=== PATIENT | male | born 1955 | race Caucasian/White ===

== ENCOUNTER 2021-07-16 16:36 | Inpatient (IN) | payer BC, MEDICARE ==
[~2021-07-16 16:36] MED LIST: Iopamidol 370 76% 100 ML VIAL ONE
[2021-07-16] MEDS ORDERED: Boostrix 0.5 ML (Tdap) VIAL ONE (16:45)
[2021-07-16] MEDS ORDERED: CEFAZOLIN 1 GM VIAL ONE (16:45)
[2021-07-16] MEDS ORDERED: Fentanyl 100 MCG/2 ML VIAL ONE (16:47)
[2021-07-16 17:02] LABS: #Basophils 0.1 thou/uL (0.0-0.2); #Eosinphils 0.2 thou/uL (0.0-0.7); #Lymphocytes 3.1 thou/uL (1.20-3.40); #Monocytes 0.7 thou/uL (0.11-0.59); %Basophils 1.8 % (0.0-1.0); %Eosinophils 2.3 % (0.0-10.0); %Lymphocytes 38.2 % (21.0-51.0); %Monocytes 8.1 % (0.0-10.0); %Neutrophils 49.6 % (42.0-75.0); Hemoglobin 13.1 g/dL (14.0-18.0); Mean Corpuscular HGB CONC 33.6 g/dL (32.0-36.0); Mean Corpuscular Hemoglobin 35.8 pg (27.0-31.0); Mean Platelet Volume 5.9 fL (7.4-10.4); Platelet Count 248 thou/uL (130-400); RBC Distribution Width 11.3 % (11.5-14.5); Red Blood Cell (RBC) Count 3.66 mill/uL (4.70-6.10); White Blood Cell (WBC) Count 8.2 thou/uL (4.8-10.8)
[2021-07-16 17:19] LABS: MDiff Complete? YES; Macrocytosis SLIGHT = 6-15 cells (100X) (0-5/hpf); PTT 23.5 sec (22.9-36.1); Platelet Morphology Comment Appears Adequate; Prothrombin Time 13.7 sec (12.0-14.7)
[2021-07-16 17:27] LABS: ALT (SGPT) 16 U/L (8-55); AST (SGOT) 20 U/L (5-34); Acetaminophen Less than 6.0 mcg/mL (10.0-30.0); Albumin 3.9 g/dL (3.4-4.8); Alcohol 63 mg/dL (Less than 10); Alkaline Phosphatase 55 U/L (40-110); Anion Gap 15 mmol/L (10-20); BUN (Urea Nitrogen) 17 mg/dL (8.4-25.7); Bilirubin, Total 0.3 mg/dL (0.2-1.2); Calc. Creatinine Clearance 0 mL/min (70-130); Calcium 8.5 mg/dL (7.8-10.44); Carbon Dioxide 22 mmol/L (23-31); Chloride 100 mmol/L (98-107); Globulin 2.7 g/dL (2.4-3.5); Glucose 81 mg/dL (80-115); Potassium 3.8 mmol/L (3.5-5.1); Protein, Total 6.6 g/dL (5.8-8.1); Salicylate Less than 8.0 mg/dL (15.0-30.0); Sodium 133 mmol/L (136-145)
[2021-07-16] MEDS ORDERED: Xylocaine 1% w/ Epi 1:100K 10 ML VIAL ONE ×2 (17:27→19:58)
[2021-07-16] MEDS ORDERED: Ketorolac Tromethamine 30 MG/ML VIAL ONE ×2 (17:55→22:10)
[2021-07-16] MEDS ORDERED: Dextrose 5% in Water 1,000 ML IV PRN (18:24)
[2021-07-16] MEDS ORDERED: Dextrose 50% Abboject 50 ML SYRINGE SLOW IVP PRN (18:24)
[2021-07-16] MEDS ORDERED: hydrALAZINE 20 MG/ML VIAL SLOW IVP PRN (18:24)
[2021-07-16] MEDS ORDERED: Rib Fracture Protocol PO SCH (18:30)
[2021-07-16] MEDS ORDERED: Morphine 4 MG/ML VIAL SLOW IVP PRN (18:31)
[2021-07-16 18:43] LABS: Magnesium 2.3 mg/dL (1.6-2.6); Phosphorus 3.5 mg/dL (2.3-4.7)
[2021-07-16] MEDS: Morphine 4 MG/ML VIAL SLOW IVP PRN (19:37)
[2021-07-16 19:46] LABS: SARS-CoV-2 NAA Rapid Test Not Detected (NotDetected)
[2021-07-16] MEDS ORDERED: Bacitracin Zinc Ointment 30 gm TUBE ONE (19:58)
[2021-07-16] MEDS ORDERED: Fentanyl 100 MCG/2 ML VIAL SLOW IVP SCH (20:00)
[2021-07-16] MEDS: Sodium Chloride 0.9% 1,000 ML IV SCH (20:03)
[2021-07-16 20:07] VITALS: BMI 25.1
[2021-07-16] MEDS ORDERED: Promethazine HCl 25 MG/ML VIAL IM PRN (20:58)
[2021-07-16] MEDS ORDERED: Ondansetron HCl/PF 4 MG/2 ML Vial IVP PRN (20:58)
[2021-07-16] MEDS ORDERED: Promethazine HCl 25 MG/ML VIAL IVPB PRN (20:58)
[2021-07-16] MEDS ORDERED: Gabapentin 100 MG CAP PO SCH (21:00)
[2021-07-16] MEDS ORDERED: Famotidine/PF 20 mg/2ml Vial SLOW IVP SCH (21:00)
[2021-07-16] MEDS ORDERED: Fentanyl 250 MCG/5 ML VIAL ONE (22:06)
[2021-07-16] MEDS ORDERED: ePHEDrine 50 MG/ML VIAL ONE (22:10)
[2021-07-16] MEDS ORDERED: Lidocaine 1% PF 5 ML VIAL ONE (22:10)
[2021-07-16] MEDS ORDERED: Vecuronium 10 MG VIAL ONE (22:10)
[2021-07-16] MEDS ORDERED: PHENYLEPHRINE-NS 100 MCG/ML 10 ML SYRINGE ONE (22:10)
[2021-07-16] MEDS ORDERED: PROPOFOL 200 MG/20 ML VIAL ONE (22:10)
[2021-07-16] MEDS ORDERED: Ondansetron PF 4 MG/2 ML Vial ONE (22:10)
[2021-07-16] MEDS ORDERED: Glycopyrrolate 0.2 MG/ML 5 ML SYRINGE ONE (22:10)
[2021-07-16] MEDS ORDERED: Succinylcholine 200 MG/10 ml SYRINGE FS ONE (22:10)
[2021-07-17] MEDS: Senokot S 8.6-50 MG TAB PO SCH ×3 (00:02→20:13)
[2021-07-17] MEDS: Oxazepam 10 MG CAP PO SCH ×4 (00:02→20:11)
[2021-07-17] MEDS: Ibuprofen 200 MG TAB PO SCH ×2 (00:02→05:26)
[2021-07-17] MEDS: Acetaminophen 500 MG TAB PO SCH ×2 (01:06→05:24)
[2021-07-17] MEDS: Cyclobenzaprine 10 MG TAB PO PRN ×3 (01:06→23:47)
[2021-07-17] MEDS: traMADol HCl 50 MG TAB PO SCH ×2 (01:07→05:25)
[2021-07-17] MEDS: Sodium Chloride 0.9% 1,000 ML IV SCH (04:57)
[2021-07-17 05:44] LABS: #Eosinphils 0.1 thou/uL (0.0-0.7); #Lymphocytes 1.2 thou/uL (1.20-3.40); #Monocytes 0.6 thou/uL (0.11-0.59); #Neutrophils 5.7 thou/uL (1.40-6.50); %Basophils 0.3 % (0.0-1.0); %Eosinophils 0.8 % (0.0-10.0); %Lymphocytes 16.3 % (21.0-51.0); %Monocytes 7.9 % (0.0-10.0); %Neutrophils 74.9 % (42.0-75.0); Hemoglobin 9.7 g/dL (14.0-18.0); Mean Corpuscular HGB CONC 33.4 g/dL (32.0-36.0); Mean Corpuscular Hemoglobin 36.1 pg (27.0-31.0); Mean Platelet Volume 5.8 fL (7.4-10.4); Platelet Count 178 thou/uL (130-400); RBC Distribution Width 11.3 % (11.5-14.5); Red Blood Cell (RBC) Count 2.68 mill/uL (4.70-6.10); White Blood Cell (WBC) Count 7.6 thou/uL (4.8-10.8)
[2021-07-17 05:53] LABS: Anion Gap 10 mmol/L (10-20); BUN (Urea Nitrogen) 18 mg/dL (8.4-25.7); Calc. Creatinine Clearance 95 mL/min (70-130); Calcium 7.5 mg/dL (7.8-10.44); Carbon Dioxide 21 mmol/L (23-31); Chloride 106 mmol/L (98-107); Glucose 115 mg/dL (80-115); Phosphorus 3.9 mg/dL (2.3-4.7); Potassium 4.5 mmol/L (3.5-5.1); Sodium 132 mmol/L (136-145)
[2021-07-17] MEDS: Morphine 4 MG/ML VIAL SLOW IVP PRN (05:59)
[2021-07-17] MEDS ORDERED: Acetaminophen/Codeine 30-300mg Tablet PO PRN (08:42)
[2021-07-17] MEDS ORDERED: Polyethylene Glycol 3350 17 GM Packet PO SCH (09:00)
[2021-07-17] MEDS: Folic Acid 1 MG TAB PO SCH (09:15)
[2021-07-17] MEDS: Enoxaparin Sodium 40 MG/0.4 ML SYRINGE SC SCH (09:15)
[2021-07-17] MEDS: Gabapentin 300 MG CAP PO SCH ×3 (09:16→20:10)
[2021-07-17] MEDS ORDERED: Cyclobenzaprine 10 MG TAB PO PRN ×2 (09:54→10:00)
[2021-07-17] MEDS ORDERED: Morphine 4 MG/ML VIAL SLOW IVP PRN (09:58)
[2021-07-17] MEDS ORDERED: Ketorolac Tromethamine 30 MG/ML VIAL IVP PRN (10:01)
[2021-07-17] MEDS ORDERED: Cyclobenzaprine 10 MG TAB PO SCH (11:30)
[2021-07-17] MEDS ORDERED: traMADol HCl 50 MG TAB PO SCH (12:00)
[2021-07-17] MEDS ORDERED: Acetaminophen/Codeine 30-300mg Tablet PO SCH (12:00)
[2021-07-17] MEDS: Thiamine 100 MG TAB PO SCH (12:13)
[2021-07-17] MEDS: Multivitamin W/ Minerals 1 TAB PO SCH (12:13)
[2021-07-17] MEDS: CEFAZOLIN 2 GM in Sodium Chloride 0.9% 100 ML IVPB SCH ×2 (12:25→20:09)
[2021-07-17] MEDS: Ketorolac Tromethamine 30 MG/ML VIAL IVP SCH ×2 (18:49→23:43)
[2021-07-17] MEDS: Acetaminophen/Codeine 30-300mg Tablet PO SCH ×2 (18:50→23:44)
[2021-07-17] MEDS: Melatonin 3 MG TAB PO SCH (20:10)
[2021-07-17] MEDS: Bacitracin Zinc Ointment 30 gm TUBE TOP SCH (20:11)
[2021-07-17] MEDS: Tamsulosin HCl 0.4 MG CAP PO SCH (20:11)
[2021-07-18] MEDS: Acetaminophen/Codeine 30-300mg Tablet PO SCH ×3 (05:01→18:32)
[2021-07-18] MEDS: Ketorolac Tromethamine 30 MG/ML VIAL IVP SCH ×3 (05:01→14:48)
[2021-07-18] MEDS: Oxazepam 10 MG CAP PO SCH ×3 (05:02→23:27)
[2021-07-18] MEDS: ceFAZolin Sodium/D5W 2 GM in Premix Bag 1 BAG IVPB SCH ×2 (05:45→12:28)
[2021-07-18] MEDS: CEFAZOLIN 2 GM in Sodium Chloride 0.9% 100 ML IVPB SCH (05:46)
[2021-07-18 06:00] LABS: #Eosinphils 0.2 thou/uL (0.0-0.7); #Lymphocytes 1.4 thou/uL (1.20-3.40); #Monocytes 0.5 thou/uL (0.11-0.59); #Neutrophils 4.6 thou/uL (1.40-6.50); %Basophils 0.4 % (0.0-1.0); %Eosinophils 2.7 % (0.0-10.0); %Lymphocytes 20.7 % (21.0-51.0); %Monocytes 7.9 % (0.0-10.0); %Neutrophils 68.2 % (42.0-75.0); Hemoglobin 9.8 g/dL (14.0-18.0); Mean Corpuscular HGB CONC 32.5 g/dL (32.0-36.0); Mean Corpuscular Hemoglobin 35.7 pg (27.0-31.0); Mean Platelet Volume 6.1 fL (7.4-10.4); Platelet Count 154 thou/uL (130-400); RBC Distribution Width 11.4 % (11.5-14.5); Red Blood Cell (RBC) Count 2.75 mill/uL (4.70-6.10); White Blood Cell (WBC) Count 6.8 thou/uL (4.8-10.8)
[2021-07-18 06:16] LABS: Anion Gap 12 mmol/L (10-20); BUN (Urea Nitrogen) 13 mg/dL (8.4-25.7); Calc. Creatinine Clearance 109 mL/min (70-130); Carbon Dioxide 21 mmol/L (23-31); Chloride 104 mmol/L (98-107); Glucose 92 mg/dL (80-115); Magnesium 2.1 mg/dL (1.6-2.6); Phosphorus 3.4 mg/dL (2.3-4.7); Potassium 4.1 mmol/L (3.5-5.1); Sodium 133 mmol/L (136-145)
[2021-07-18] MEDS: Polyethylene Glycol 3350 17 GM Packet PO SCH (10:09)
[2021-07-18] MEDS: Enoxaparin Sodium 40 MG/0.4 ML SYRINGE SC SCH (10:09)
[2021-07-18] MEDS: Thiamine 100 MG TAB PO SCH (10:10)
[2021-07-18] MEDS: Gabapentin 300 MG CAP PO SCH ×3 (10:10→23:27)
[2021-07-18] MEDS: Cyclobenzaprine 10 MG TAB PO PRN (10:10)
[2021-07-18] MEDS: Multivitamin W/ Minerals 1 TAB PO SCH (10:10)
[2021-07-18] MEDS: Senokot S 8.6-50 MG TAB PO SCH ×2 (10:10→23:14)
[2021-07-18] MEDS: Folic Acid 1 MG TAB PO SCH (10:10)
[2021-07-18] MEDS: Bacitracin Zinc Ointment 30 gm TUBE TOP SCH ×2 (10:12→23:13)
[2021-07-18] MEDS: traMADol HCl 50 MG TAB PO SCH ×2 (12:28→18:32)
[2021-07-18] MEDS: Calcium Carbonate 500 MG ChewTAB PO PRN (18:08)
[2021-07-18] MEDS ORDERED: Promethazine HCl 12.5 MG in Sodium Chloride 0.9% 50 ML IVPB PRN (18:18)
[2021-07-18] MEDS ORDERED: Ondansetron HCl/PF 8 MG in Sodium Chloride 0.9% 50 ML IVPB PRN (18:18)
[2021-07-18] MEDS ORDERED: Simethicone Chewable 80 MG TAB PO PRN (18:19)
[2021-07-18] MEDS ORDERED: Ondansetron PF 4 MG/2 ML Vial IVP PRN ×2 (18:21→20:12)
[2021-07-18] MEDS ORDERED: Lidocaine 2% Jelly 5 ML TUBE TOP SCH (20:07)
[2021-07-18] MEDS ORDERED: Naloxone HCl 0.4 mg/ml Vial IV PRN (20:12)
[2021-07-18] MEDS ORDERED: diphenhydrAMINE 50 MG/ML VIAL IVP PRN (20:12)
[2021-07-18] MEDS ORDERED: diphenhydrAMINE 25 MG CAP PO PRN (20:12)
[2021-07-18] MEDS ORDERED: Zolpidem Tartrate 5 MG TAB PO PRN (20:12)
[2021-07-18] MEDS ORDERED: diphenhydrAMINE 50 MG/ML VIAL IM PRN (20:12)
[2021-07-18] MEDS ORDERED: HYDROmorphone 10 mg/100 ml CADD IVPB PRN (20:12)
[2021-07-18] MEDS ORDERED: Promethazine HCl 25 MG/ML VIAL IM PRN (20:12)
[2021-07-18] MEDS: Scopolamine 1.5 mg/72 hour Patch TD SCH (20:13)
[2021-07-18] MEDS ORDERED: Benzocaine 20% Spray 60 ML CAN PO SCH (20:15)
[2021-07-18] MEDS ORDERED: Communication Order-Pharmacy FS SCH (20:15)
[2021-07-18] MEDS ORDERED: Morphine 4 MG/ML VIAL SLOW IVP SCH (20:35)
[2021-07-18] MEDS ORDERED: Ibuprofen 200 MG TAB PO SCH (21:00)
[2021-07-18] MEDS: CEFAZOLIN 2 GM, Admixture Fee 1 EACH in Sodium Chloride 0.9% 100 ML IVPB SCH (21:35)
[2021-07-18] MEDS: Tamsulosin HCl 0.4 MG CAP PO SCH (21:35)
[2021-07-18] MEDS: Melatonin 3 MG TAB PO SCH (23:14)
[2021-07-19] MEDS: Morphine 4 MG/ML VIAL SLOW IVP PRN ×2 (00:40→18:46)
[2021-07-19] MEDS: Oxazepam 10 MG CAP PO SCH ×3 (04:51→20:55)
[2021-07-19 05:11] LABS: #Lymphocytes 0.9 thou/uL (1.20-3.40); #Monocytes 0.6 thou/uL (0.11-0.59); #Neutrophils 6.7 thou/uL (1.40-6.50); %Basophils 0.4 % (0.0-1.0); %Eosinophils 0.5 % (0.0-10.0); %Lymphocytes 11.2 % (21.0-51.0); %Monocytes 7.1 % (0.0-10.0); %Neutrophils 80.8 % (42.0-75.0); Hemoglobin 10.1 g/dL (14.0-18.0); Mean Corpuscular HGB CONC 33.8 g/dL (32.0-36.0); Mean Corpuscular Hemoglobin 36.2 pg (27.0-31.0); Mean Platelet Volume 6.4 fL (7.4-10.4); Platelet Count 197 thou/uL (130-400); RBC Distribution Width 11.2 % (11.5-14.5); Red Blood Cell (RBC) Count 2.79 mill/uL (4.70-6.10); White Blood Cell (WBC) Count 8.3 thou/uL (4.8-10.8)
[2021-07-19 05:14] LABS: Lactic Acid 0.9 mmol/L (0.5-2.2)
[2021-07-19 05:19] LABS: Anion Gap 13 mmol/L (10-20); BUN (Urea Nitrogen) 15 mg/dL (8.4-25.7); Calc. Creatinine Clearance 106 mL/min (70-130); Calcium 8.5 mg/dL (7.8-10.44); Carbon Dioxide 25 mmol/L (23-31); Chloride 99 mmol/L (98-107); Glucose 136 mg/dL (80-115); Magnesium 2.1 mg/dL (1.6-2.6); Phosphorus 3.6 mg/dL (2.3-4.7); Sodium 133 mmol/L (136-145)
[2021-07-19] MEDS: CEFAZOLIN 2 GM, Admixture Fee 1 EACH in Sodium Chloride 0.9% 100 ML IVPB SCH ×3 (06:08→20:53)
[2021-07-19] MEDS ORDERED: Morphine 4 MG/ML VIAL SLOW IVP SCH (08:30)
[2021-07-19] MEDS: Bacitracin Zinc Ointment 30 gm TUBE TOP SCH ×2 (08:39→21:20)
[2021-07-19] MEDS: Enoxaparin Sodium 40 MG/0.4 ML SYRINGE SC SCH (08:39)
[2021-07-19] MEDS: Sodium Chloride 0.9% 1,000 ML IV SCH ×2 (08:39→21:22)
[2021-07-19] MEDS: Polyethylene Glycol 3350 17 GM Packet PO SCH (08:41)
[2021-07-19] MEDS: Multivitamin W/ Minerals 1 TAB PO SCH (08:41)
[2021-07-19] MEDS: Thiamine 100 MG TAB PO SCH (08:41)
[2021-07-19] MEDS: Senokot S 8.6-50 MG TAB PO SCH ×2 (08:41→20:55)
[2021-07-19] MEDS: Folic Acid 1 MG TAB PO SCH (08:41)
[2021-07-19] MEDS: Calcium Carbonate 500 MG ChewTAB PO PRN (18:50)
[2021-07-19] MEDS: Melatonin 3 MG TAB PO SCH (20:54)
[2021-07-19] MEDS: Tamsulosin HCl 0.4 MG CAP PO SCH (20:55)
[2021-07-20] MEDS: CEFAZOLIN 2 GM, Admixture Fee 1 EACH in Sodium Chloride 0.9% 100 ML IVPB SCH ×3 (05:01→20:34)
[2021-07-20 05:13] LABS: #Eosinphils 0.1 thou/uL (0.0-0.7); #Lymphocytes 1.3 thou/uL (1.20-3.40); #Monocytes 0.8 thou/uL (0.11-0.59); #Neutrophils 5.5 thou/uL (1.40-6.50); %Basophils 0.3 % (0.0-1.0); %Lymphocytes 17.2 % (21.0-51.0); %Neutrophils 71.6 % (42.0-75.0); Hemoglobin 9.8 g/dL (14.0-18.0); Mean Corpuscular HGB CONC 33.5 g/dL (32.0-36.0); Mean Corpuscular Hemoglobin 35.9 pg (27.0-31.0); Mean Platelet Volume 6.5 fL (7.4-10.4); Platelet Count 200 thou/uL (130-400); RBC Distribution Width 11.3 % (11.5-14.5); Red Blood Cell (RBC) Count 2.73 mill/uL (4.70-6.10); White Blood Cell (WBC) Count 7.6 thou/uL (4.8-10.8)
[2021-07-20 05:43] LABS: Anion Gap 13 mmol/L (10-20); BUN (Urea Nitrogen) 21 mg/dL (8.4-25.7); Calc. Creatinine Clearance 113 mL/min (70-130); Calcium 8.7 mg/dL (7.8-10.44); Carbon Dioxide 28 mmol/L (23-31); Chloride 100 mmol/L (98-107); Glucose 119 mg/dL (80-115); Magnesium 2.2 mg/dL (1.6-2.6); Phosphorus 3.9 mg/dL (2.3-4.7); Potassium 4.1 mmol/L (3.5-5.1); Sodium 137 mmol/L (136-145)
[2021-07-20] MEDS: Oxazepam 10 MG CAP PO SCH ×3 (05:49→20:36)
[2021-07-20] MEDS: Morphine 4 MG/ML VIAL SLOW IVP PRN ×3 (06:50→18:47)
[2021-07-20] MEDS: Enoxaparin Sodium 40 MG/0.4 ML SYRINGE SC SCH (09:49)
[2021-07-20] MEDS: Polyethylene Glycol 3350 17 GM Packet PO SCH (09:49)
[2021-07-20] MEDS: Senokot S 8.6-50 MG TAB PO SCH ×2 (09:49→20:36)
[2021-07-20] MEDS: Thiamine 100 MG TAB PO SCH (09:49)
[2021-07-20] MEDS: Folic Acid 1 MG TAB PO SCH (09:49)
[2021-07-20] MEDS: Multivitamin W/ Minerals 1 TAB PO SCH (09:49)
[2021-07-20] MEDS: Bacitracin Zinc Ointment 30 gm TUBE TOP SCH ×2 (09:50→20:37)
[2021-07-20] MEDS: Sodium Chloride 0.9% 1,000 ML IV SCH ×2 (10:20→23:49)
[2021-07-20] MEDS: Calcium Carbonate 500 MG ChewTAB PO PRN (13:51)
[2021-07-20 14:48] LABS: Magnesium 2.1 mg/dL (1.6-2.6)
[2021-07-20] MEDS ORDERED: Pantoprazole 40 MG VIAL IVP SCH (20:15)
[2021-07-20] MEDS: Melatonin 3 MG TAB PO SCH (20:35)
[2021-07-20] MEDS: Tamsulosin HCl 0.4 MG CAP PO SCH (20:35)
[2021-07-21 05:45] LABS: #Eosinphils 0.2 thou/uL (0.0-0.7); #Lymphocytes 1.2 thou/uL (1.20-3.40); #Monocytes 0.6 thou/uL (0.11-0.59); #Neutrophils 4.1 thou/uL (1.40-6.50); %Basophils 0.3 % (0.0-1.0); %Eosinophils 2.6 % (0.0-10.0); %Monocytes 10.3 % (0.0-10.0); %Neutrophils 66.8 % (42.0-75.0); Hemoglobin 8.9 g/dL (14.0-18.0); Mean Corpuscular HGB CONC 34.9 g/dL (32.0-36.0); Mean Platelet Volume 6.4 fL (7.4-10.4); Platelet Count 205 thou/uL (130-400); Red Blood Cell (RBC) Count 2.39 mill/uL (4.70-6.10); White Blood Cell (WBC) Count 6.2 thou/uL (4.8-10.8)
[2021-07-21 05:56] LABS: Anion Gap 14 mmol/L (10-20); BUN (Urea Nitrogen) 17 mg/dL (8.4-25.7); Calc. Creatinine Clearance 124 mL/min (70-130); Calcium 8.2 mg/dL (7.8-10.44); Carbon Dioxide 24 mmol/L (23-31); Chloride 104 mmol/L (98-107); Glucose 93 mg/dL (80-115); Phosphorus 3.7 mg/dL (2.3-4.7); Potassium 3.8 mmol/L (3.5-5.1); Sodium 138 mmol/L (136-145)
[2021-07-21] MEDS: Oxazepam 10 MG CAP PO SCH ×5 (06:37→21:34)
[2021-07-21] MEDS ORDERED: Pantoprazole 40 MG VIAL IVP SCH (09:00)
[2021-07-21] MEDS: Pantoprazole 40 MG VIAL IVP SCH ×2 (10:04→21:21)
[2021-07-21] MEDS: Polyethylene Glycol 3350 17 GM Packet PO SCH (10:05)
[2021-07-21] MEDS: Thiamine 100 MG TAB PO SCH (10:05)
[2021-07-21] MEDS: Enoxaparin Sodium 40 MG/0.4 ML SYRINGE SC SCH (10:05)
[2021-07-21] MEDS: Senokot S 8.6-50 MG TAB PO SCH ×2 (10:05→21:22)
[2021-07-21] MEDS: Folic Acid 1 MG TAB PO SCH (10:05)
[2021-07-21] MEDS: Multivitamin W/ Minerals 1 TAB PO SCH (10:05)
[2021-07-21] MEDS: Bacitracin Zinc Ointment 30 gm TUBE TOP SCH ×2 (10:06→20:03)
[2021-07-21] MEDS: Morphine 4 MG/ML VIAL SLOW IVP PRN (13:14)
[2021-07-21] MEDS: Sodium Chloride 0.9% 1,000 ML IV SCH (13:22)
[2021-07-21] MEDS: Calcium Carbonate 500 MG ChewTAB PO PRN (15:59)
[2021-07-21] MEDS: Scopolamine 1.5 mg/72 hour Patch TD SCH (18:24)
[2021-07-21] MEDS: Tamsulosin HCl 0.4 MG CAP PO SCH (21:21)
[2021-07-21] MEDS: Melatonin 3 MG TAB PO SCH (21:22)
[2021-07-22] MEDS: Sodium Chloride 0.9% 1,000 ML IV SCH (04:37)
[2021-07-22] MEDS: Oxazepam 10 MG CAP PO SCH ×4 (05:49→23:13)
[2021-07-22 07:24] LABS: #Eosinphils 0.2 thou/uL (0.0-0.7); #Lymphocytes 1.2 thou/uL (1.20-3.40); #Monocytes 0.6 thou/uL (0.11-0.59); #Neutrophils 3.6 thou/uL (1.40-6.50); %Basophils 0.4 % (0.0-1.0); %Eosinophils 3.7 % (0.0-10.0); %Lymphocytes 20.9 % (21.0-51.0); %Monocytes 10.9 % (0.0-10.0); %Neutrophils 64.1 % (42.0-75.0); Mean Corpuscular HGB CONC 33.1 g/dL (32.0-36.0); Mean Corpuscular Hemoglobin 35.6 pg (27.0-31.0); Mean Platelet Volume 6.4 fL (7.4-10.4); Platelet Count 236 thou/uL (130-400); Red Blood Cell (RBC) Count 2.53 mill/uL (4.70-6.10); White Blood Cell (WBC) Count 5.6 thou/uL (4.8-10.8)
[2021-07-22 07:46] LABS: Anion Gap 16 mmol/L (10-20); BUN (Urea Nitrogen) 14 mg/dL (8.4-25.7); Calc. Creatinine Clearance 141 mL/min (70-130); Calcium 8.3 mg/dL (7.8-10.44); Carbon Dioxide 23 mmol/L (23-31); Chloride 99 mmol/L (98-107); Glucose 84 mg/dL (80-115); Phosphorus 3.2 mg/dL (2.3-4.7); Potassium 3.8 mmol/L (3.5-5.1); Sodium 134 mmol/L (136-145)
[2021-07-22] MEDS ORDERED: Sodium Phosphate 15 MMOL in Sodium Chloride 0.9% 250 ML 250 ML IVPB SCH (08:15)
[2021-07-22] MEDS: Enoxaparin Sodium 40 MG/0.4 ML SYRINGE SC SCH (09:25)
[2021-07-22] MEDS: Folic Acid 1 MG TAB PO SCH (09:31)
[2021-07-22] MEDS: Multivitamin W/ Minerals 1 TAB PO SCH (09:31)
[2021-07-22] MEDS: Polyethylene Glycol 3350 17 GM Packet PO SCH (09:32)
[2021-07-22] MEDS: Pantoprazole 40 MG VIAL IVP SCH ×2 (09:32→21:07)
[2021-07-22] MEDS: Senokot S 8.6-50 MG TAB PO SCH ×2 (09:33→21:07)
[2021-07-22] MEDS: Thiamine 100 MG TAB PO SCH (09:33)
[2021-07-22] MEDS: Bacitracin Zinc Ointment 30 gm TUBE TOP SCH ×2 (09:35→21:06)
[2021-07-22] MEDS: cloNIDine 0.1 MG TAB PO SCH ×2 (12:21→17:47)
[2021-07-22] MEDS: Morphine 4 MG/ML VIAL SLOW IVP PRN (15:13)
[2021-07-22] MEDS: Tamsulosin HCl 0.4 MG CAP PO SCH (21:07)
[2021-07-22] MEDS: Melatonin 3 MG TAB PO SCH (21:07)
[2021-07-23] MEDS: cloNIDine 0.1 MG TAB PO SCH ×4 (02:08→18:04)
[2021-07-23] MEDS: Oxazepam 10 MG CAP PO SCH ×2 (05:46→15:15)
[2021-07-23] MEDS: Senokot S 8.6-50 MG TAB PO SCH (10:28)
[2021-07-23] MEDS: Polyethylene Glycol 3350 17 GM Packet PO SCH (10:28)
[2021-07-23] MEDS: Enoxaparin Sodium 40 MG/0.4 ML SYRINGE SC SCH (10:28)
[2021-07-23] MEDS: Folic Acid 1 MG TAB PO SCH (10:28)
[2021-07-23] MEDS: Multivitamin W/ Minerals 1 TAB PO SCH (10:28)
[2021-07-23] MEDS: Thiamine 100 MG TAB PO SCH (10:28)
[2021-07-23] MEDS: Bacitracin Zinc Ointment 30 gm TUBE TOP SCH (10:29)
[2021-07-23] MEDS: Pantoprazole 40 MG VIAL IVP SCH (10:30)
[2021-07-23] MEDS ORDERED: Sodium Chloride 0.65% Nasal 44 ML BOT EA NARE PRN (10:58)
[2021-07-23] MEDS: Morphine 4 MG/ML VIAL SLOW IVP PRN ×2 (11:16→17:43)
[2021-07-23 16:45] VITALS: TEMP 98.5
[2021-07-23 18:06] VITALS: BP 138/78
== END 2021-07-23 17:45 | DRG 501 ==
LOC: ERS 16:36 → SURG B 17:56
PROVIDERS: ADMIT Specialist; ATTEND Surgery
PROC: 0JQ00ZZ Repair Scalp Subcutaneous Tissue and Fascia, Open Approach (ICD-10-PCS; principal; 2021-07-16)
PROC: 0HQ0XZZ Repair Scalp Skin, External Approach (ICD-10-PCS; 2021-07-16)
PROC: 0JQ10ZZ Repair Face Subcutaneous Tissue and Fascia, Open Approach (ICD-10-PCS; 2021-07-16)
DX: S32.592A Other specified fracture of left pubis, initial encounter for closed fracture (principal); S22.41XA Multiple fractures of ribs, right side, initial encounter for closed fracture; E87.1 Hypo-osmolality and hyponatremia; K56.7 Ileus, unspecified; S01.02XA Laceration with foreign body of scalp, initial encounter; S32.591A Other specified fracture of right pubis, initial encounter for closed fracture; Z20.822 Contact with and (suspected) exposure to COVID-19; F17.210 Nicotine dependence, cigarettes, uncomplicated; S42.111A Displaced fracture of body of scapula, right shoulder, initial encounter for closed fracture; S80.212A Abrasion, left knee, initial encounter; S80.211A Abrasion, right knee, initial encounter; S60.512A Abrasion of left hand, initial encounter; S60.511A Abrasion of right hand, initial encounter; R40.2412 Glasgow coma scale score 13-15, at arrival to emergency department; V23.4XXA Motorcycle driver injured in collision with car, pick-up truck or van in traffic accident, initial encounter
CPT/HCPCS: 12001; 36415; 70450; 71045; 71260; 72125; 72170; 74018; 74177; 80048; 80053; 80307; 83605; 83735; 84100; 85025; 85610; 85730; 86850; 86900; 86901; 90471; 90715; 94640; 96374; 96375; C9113; G0390; J0690; J1650; J1885; J2270; J2405; J2704; J2710; J3010; J3490; J7050; J7620; Q9967; S0028; U0002